=== PATIENT | male | born 1990 | race Caucasian/White ===

== ENCOUNTER → 2018-12-09 | Outpatient (CLI) | payer OTHER ==
[~2018-12-09] MED LIST: [UNRECOGNIZED DRUG - REMARK]
[2018-12-15 19:05] LABS: HCV LOG10 6.631 (.); HEPATITIS C GENOTYPE 2b (.); HEPATITIS C QUANTITATION 4280000 IU/mL (.)
== END | disposition home or self-care (01) ==
LOC: LAB SHORT 18:10 → LAB EV 18:10
PROVIDERS: Physician Assistant
DX: R74.8 Abnormal levels of other serum enzymes (principal)
CPT/HCPCS: 36415; 87522

== ENCOUNTER 2019-03-21 19:47 | Emergency (ER) | payer OTHER | END 2019-03-21 20:49 | disposition left against medical advice (07) | LOC: ER 19:47 | DX: Z53.21 Procedure and treatment not carried out due to patient leaving prior to being seen by health care provider (principal) ==

== ENCOUNTER 2019-12-06 20:58 | Emergency (ER) | payer OTHER ==
[~2019-12-06] VITALS: Ht 172.7 cm; Wt 84.8 kg
== END 2019-12-07 00:05 | disposition home or self-care (01) ==
LOC: ER 20:58
DX: L08.9 Local infection of the skin and subcutaneous tissue, unspecified (principal); F17.290 Nicotine dependence, other tobacco product, uncomplicated
CPT/HCPCS: 99282

== ENCOUNTER 2021-05-06 02:25 | Emergency (ER) | payer OTHER ==
[~2021-05-06] VITALS: Ht 172.7 cm; Wt 104.3 kg
[2021-05-06] MEDS ORDERED: NAPROXEN250 M1 PO (02:51)
== END 2021-05-06 03:10 | disposition home or self-care (01) ==
LOC: ER 02:25
DX: M54.9 Dorsalgia, unspecified (principal); F17.290 Nicotine dependence, other tobacco product, uncomplicated
CPT/HCPCS: 99283; A9270

== ENCOUNTER 2022-03-03 02:23 | Emergency (ER) | payer OTHER ==
[~2022-03-03] VITALS: Ht 172.7 cm; Wt 108.9 kg
[~2022-03-03 02:23] MED LIST changes: +NAPROXEN250 M1 PO
[2022-03-03 05:36] LABS: Influenza A, PCR NEGATIVE (NEGATIVE); Influenza B, PCR NEGATIVE (NEGATIVE); Resp Syncytial Virus, PCR NEGATIVE (NEGATIVE); SARS-Cov-2 (COVID-19) PCR, MMC NEGATIVE (NEGATIVE)
== END 2022-03-03 07:30 | disposition left against medical advice (07) ==
LOC: ER 02:23
PROVIDERS: Emergency Medicine
DX: R06.02 Shortness of breath (principal); Z53.21 Procedure and treatment not carried out due to patient leaving prior to being seen by health care provider
CPT/HCPCS: 0241U

== ENCOUNTER 2023-07-10 20:08 | Emergency (ER) | payer OTHER ==
[~2023-07-10] VITALS: Ht 172.7 cm; Wt 104.3 kg
[2023-07-10 20:18] VITALS: BP 131/97
[2023-07-10] MEDS ORDERED: Diphth,Pertuss(Acell),Tet Vac 0.5 ML VIAL IM ONE (21:35)
== END 2023-07-10 21:48 | disposition home or self-care (01) ==
LOC: ER 20:08
DX: S31.115A Laceration without foreign body of abdominal wall, periumbilic region without penetration into peritoneal cavity, initial encounter (principal); F17.290 Nicotine dependence, other tobacco product, uncomplicated; W27.0XXA Contact with workbench tool, initial encounter; Y93.89 Activity, other specified
CPT/HCPCS: 12001; 74018; 90471; 90715; 99283-25

== ENCOUNTER 2024-11-10 20:08 | Emergency (ER) | payer SELFPAY ==
[~2024-11-10] VITALS: Ht 172.7 cm; Wt 113.4 kg
[2024-11-10 20:35] VITALS: BP 140/83
[2024-11-10] MEDS ORDERED: Fluorescein Sod 1MG Opth Strips RIGHTEYE ONE (20:40)
[2024-11-10] MEDS ORDERED: Tetracaine HCl/Pf 0.5% Opth Soln 4 ml RIGHTEYE ONE (20:40)
[2024-11-10] MEDS ORDERED: Erythromycin 0.5% Opth Oint 1 gm RIGHTEYE ONE (21:55)
[2024-11-10] MEDS ORDERED: ERYT.5TO RIGHTEYE (21:56)
== END 2024-11-10 22:06 | disposition home or self-care (01) ==
LOC: ER 20:08
DX: S05.01XA Injury of conjunctiva and corneal abrasion without foreign body, right eye, initial encounter (principal); W44.8XXA Other foreign body entering into or through a natural orifice, initial encounter; Z79.899 Other long term (current) drug therapy
CPT/HCPCS: 99283; A9270